=== PATIENT | female | born 1960 | race Caucasian/White ===

== ENCOUNTER 2021-06-11 14:11 | Observation (INO) ==
[2021-06-11 16:10] LABS: Mean Platelet Volume 9.5 fL (9.4-12.4); Monocytes % 7.5 %; Red Cell Distribution Width 14.2 % (11.5-14.5)
[2021-06-11 16:11] LABS: Basophils # 0.1 K/mcL (0.0-0.2); Basophils % 0.6 %; Eosinophils # 0.3 K/mcL (0.0-0.6); Eosinophils % 3.4 %; Immature Granulocytes % 0.4 % (0-4); Lymphocytes # 0.9 K/mcL (0.6-4.6); Lymphocytes % 10.1 %; Mean Corpuscular HGB Conc 29.4 g/dL (31.6-35.5); Mean Corpuscular Hemoglobin 27.7 pg (28.0-33.3); Mean Corpuscular Volume 94.2 fL (83.0-100.0); Monocytes # 0.6 K/mcL (0.0-1.3); Neutrophils # 6.6 K/mcL (1.6-8.9); Nucleated Red Blood Cells 0.2 /100 WBC (0); Platelet Count 353 K/mcL (140-400); Red Blood Count 1.91 M/mcL (3.82-4.97); White Blood Count 8.4 K/mcL (4.3-11.1)
[2021-06-11 16:17] LABS: INR 1.1; Prothrombin Time 12.7 Seconds (9.4-12.1)
[2021-06-11 16:18] LABS: Hemoglobin 5.3 g/dL (11.5-15.4)
[2021-06-11 16:19] LABS: Activated Partial Thrombo Time 24.1 Seconds (26.0-36.0)
[2021-06-11 16:28] LABS: BUN/Creatinine Ratio 17 (6-26); Blood Urea Nitrogen 20 mg/dL (8-23); Calcium 9.2 mg/dL (8.6-10.3); Carbon Dioxide 22 mEq/L (23-29); Chloride 101 mEq/L (98-107); Glucose 118 mg/dL (70-105); Osmolality,Calculated 282 (280-300); Potassium 5.2 mEq/L (3.5-5.1); Sodium 134 mEq/L (136-145); eGFR For African Americans 56 (> 60); eGFR For Non-African Americans 47 (> 60)
[2021-06-11] MEDS ORDERED: Acetaminophen 325 MG TABLET PO PRN (16:47)
[2021-06-11] MEDS ORDERED: Naloxone 0.4 MG/ML INJ IVP PRN (16:47)
[2021-06-11] MEDS ORDERED: Ondansetron 4 MG/2 ML VIAL IVP PRN (16:47)
[2021-06-11] MEDS ORDERED: Ringers Solution, Lactated 500 ML IVC ONE ×2 (16:52→17:15)
[2021-06-11 17:17] LABS: % Iron Saturation 32 % (15-50); Alanine Aminotransferase 14 Units/L (7-52); Albumin 3.9 g/dL (3.5-5.7); Albumin/Globulin Ratio 1.7 (1.1-2.2); Alkaline Phosphatase 68 Units/L (34-104); Aspartate Amino Transferase 20 Units/L (13-39); Bilirubin,Indirect 0.3 mg/dL (0.0-1.0); Bilirubin,Total 0.3 mg/dL (0.3-1.0); Globulin 2.3 g/dL (2.4-3.5); Iron 155 mcg/dL (50-170); Lactate Dehydrogenase 192 Units/L (140-271); Total Protein 6.2 g/dL (6.4-8.9); Transferrin 351 mg/dL (203-362)
[2021-06-11] MEDS ORDERED: 0.9 % Sodium Chloride 500 ML ONE (17:18)
[2021-06-11] MEDS ORDERED: Pantoprazole 40 MG VIAL IVP ONE (17:30)
[2021-06-11] MEDS ORDERED: Dextrose Gel 15 GM/37.5 ML TUBE PO PRN ×2 (17:35)
[2021-06-11] MEDS ORDERED: D5% in Water 1,000 ML IVC PRN (17:35)
[2021-06-11] MEDS ORDERED: *HR* Dextrose 50 % in Water (Vial) 50 ML VIAL IVP PRN (17:35)
[2021-06-11] MEDS ORDERED: Pantoprazole 40 MG in 0.9 % Sodium Chloride Mini Bag 100 ML IVC SCH (17:45)
[2021-06-11 17:54] LABS: Ferritin < 8 ng/mL (10-120)
[2021-06-11] MEDS ORDERED: Pantoprazole 40 MG VIAL IVP SCH (18:00)
[2021-06-12 01:57] LABS: Hematocrit 20.7 % (35.3-44.9); Mean Corpuscular Hemoglobin 26.8 pg (28.0-33.3); Mean Corpuscular Volume 92.4 fL (83.0-100.0); Mean Platelet Volume 9.3 fL (9.4-12.4); Platelet Count 314 K/mcL (140-400); Red Blood Count 2.24 M/mcL (3.82-4.97); Red Cell Distribution Width 14.1 % (11.5-14.5); White Blood Count 7.1 K/mcL (4.3-11.1)
[2021-06-12 02:23] LABS: BUN/Creatinine Ratio 18 (6-26); Blood Urea Nitrogen 19 mg/dL (8-23); Calcium 8.5 mg/dL (8.6-10.3); Carbon Dioxide 20 mEq/L (23-29); Chloride 107 mEq/L (98-107); Glucose 120 mg/dL (70-105); Osmolality,Calculated 283 (280-300); Potassium 4.6 mEq/L (3.5-5.1); Sodium 135 mEq/L (136-145); eGFR For African Americans > 60 (> 60); eGFR For Non-African Americans 53 (> 60)
[2021-06-12] MEDS ORDERED: 0.9 % Sodium Chloride 250 ML ONE (03:19)
[2021-06-12] MEDS: Insulin LISPRO 300 UNITS/3 ML VIAL SUBQ SCH ×5 (05:42→21:48)
[2021-06-12 09:12] LABS: Hematocrit 26.5 % (35.3-44.9)
[2021-06-12 09:17] LABS: Hemoglobin 7.9 g/dL (11.5-15.4)
[2021-06-12] MEDS ORDERED: Lidocaine -MPF 2% 5 ML VIAL ONE (10:15)
[2021-06-12] MEDS ORDERED: Iron Sucrose Complex 400 MG in 0.9 % Sodium Chloride 250 ML IVPB ONE (10:36)
[2021-06-12] MEDS: Loratadine 10 MG TABLET PO SCH (15:46)
[2021-06-13 05:31] LABS: Hematocrit 25.3 % (35.3-44.9); Hemoglobin 7.8 g/dL (11.5-15.4); Mean Corpuscular HGB Conc 30.8 g/dL (31.6-35.5); Mean Corpuscular Hemoglobin 28.5 pg (28.0-33.3); Mean Corpuscular Volume 92.3 fL (83.0-100.0); Mean Platelet Volume 8.8 fL (9.4-12.4); Platelet Count 254 K/mcL (140-400); Red Blood Count 2.74 M/mcL (3.82-4.97); Red Cell Distribution Width 14.3 % (11.5-14.5); White Blood Count 7.4 K/mcL (4.3-11.1)
[2021-06-13 05:48] LABS: BUN/Creatinine Ratio 15 (6-26); Blood Urea Nitrogen 13 mg/dL (8-23); Calcium 8.4 mg/dL (8.6-10.3); Carbon Dioxide 22 mEq/L (23-29); Chloride 106 mEq/L (98-107); Glucose 119 mg/dL (70-105); Osmolality,Calculated 285 (280-300); Potassium 4.2 mEq/L (3.5-5.1); Sodium 137 mEq/L (136-145); eGFR For African Americans > 60 (> 60); eGFR For Non-African Americans > 60 (> 60)
[2021-06-13] MEDS: Loratadine 10 MG TABLET PO SCH (08:17)
[2021-06-13] MEDS: Insulin LISPRO 300 UNITS/3 ML VIAL SUBQ SCH (08:19)
[2021-06-13] MEDS ORDERED: Cyanocobalamin (B-12) 1,000 MCG TABLET PO SCH (09:00)
[2021-06-13] MEDS ORDERED: Iron Sucrose Complex 250 MG in 0.9 % Sodium Chloride 250 ML IVPB SCH (09:00)
[2021-06-13] MEDS ORDERED: lisinopriL 20 MG TABLET PO SCH (09:00)
[2021-06-13] MEDS ORDERED: Pantoprazole 40 MG VIAL IVP SCH (09:00)
[2021-06-13 11:30] VITALS: BP 152/71; PULSE 96; TEMP 98.2; O2SAT 99
[2021-06-14] MEDS ORDERED: SODIUM CHLORIDE/NAHCO3/KCL/PEG 4,000 ML SOLN.RECON PO ONE (17:00)
== END 2021-06-13 11:52 | disposition home or self-care (01) ==
LOC: EMEROOARM 14:11 → 3ANU 14:11 → SUATTDRO 19:29 → 3ANU 20:50
PROVIDERS: ADMIT Internal Medicine; ATTEND Internal Medicine